=== PATIENT | male | born 1935 | race Two or more races ===

== ENCOUNTER 2022-12-02 09:51 | Outpatient (CLI) | payer MEDICARE, OTHER | END 2022-12-02 23:59 | disposition home health service (06) | LOC: WOU 09:51 | PROVIDERS: ATTEND Podiatrist Foot & Ankle Surgery | DX: L97.816 Non-pressure chronic ulcer of other part of right lower leg with bone involvement without evidence of necrosis (principal); T81.89XS Other complications of procedures, not elsewhere classified, sequela; M79.604 Pain in right leg; R60.0 Localized edema; Z79.02 Long term (current) use of antithrombotics/antiplatelets; Z79.82 Long term (current) use of aspirin | CPT/HCPCS: 11043 ==

== ENCOUNTER 2022-12-09 09:25 | Outpatient (CLI) | payer MEDICARE, OTHER | END 2022-12-09 23:59 | disposition home health service (06) | LOC: WOU 09:25 | PROVIDERS: ATTEND Podiatrist Foot & Ankle Surgery | DX: L97.216 Non-pressure chronic ulcer of right calf with bone involvement without evidence of necrosis (principal); T81.89XS Other complications of procedures, not elsewhere classified, sequela; M79.604 Pain in right leg; Z85.828 Personal history of other malignant neoplasm of skin; Z79.82 Long term (current) use of aspirin; Z79.02 Long term (current) use of antithrombotics/antiplatelets | CPT/HCPCS: 11043 ==

== ENCOUNTER 2022-12-24 11:04 | Outpatient (CLI) | payer MEDICARE, OTHER ==
[2022-12-24 12:48] LABS: BASOPHILS % (AUTO) 0.4 % (0.0-2.0); EOSINOPHILS # (AUTO) 0.1 K/uL (0.0-0.7); EOSINOPHILS % (AUTO) 1.1 % (0.0-6.0); HEMATOCRIT 40 % (39-51); HEMOGLOBIN 13.2 g/dL (13.5-17.5); LYMPHOCYTES # (AUTO) 2.4 K/uL (0.8-4.8); LYMPHOCYTES % (AUTO) 39.5 % (20.0-44.0); MEAN CORPUSCULAR HEMOGLOBIN 31 PG (26.0-33.0); MEAN CORPUSCULAR HGB CONC 33 g/dl (31.0-36.0); MEAN CORPUSCULAR VOLUME 94 fL (80-96); MONOCYTES # (AUTO) 0.5 K/uL (0.1-1.30); MONOCYTES % (AUTO) 8.5 % (2.0-12.0); NEUTROPHILS # (AUTO) 3.1 K/uL (1.8-8.9); NEUTROPHILS % (AUTO) 50.5 % (43.0-81.0); PLATELET COUNT (AUTO) 235 K/uL (150-450); RED CELL DISTRIBUTION WIDTH 14.4 % (11.5-15.0); WHITE BLOOD COUNT (AUTO) 6.2 K/uL (4.3-11.0)
[2022-12-24 12:55] LABS: CALCIUM, SERUM 8.9 mg/dL (8.5-10.1); CARBON DIOXIDE 27 mmol/L (21-32); CHLORIDE 104 mmol/L (98-107); CREATININE 1.7 mg/dL (0.6-1.3); GLUCOSE 62 mg/dL (74-106); POTASSIUM 4.6 mmol/L (3.5-5.1); SODIUM SERUM 140 mmol/L (136-145); UREA NITROGEN, BLOOD 38 mg/dL (7-18)
[2022-12-24 13:21] LABS: INR 1.08 (0.91-1.10); PROTHROMBIN TIME 11.4 SECS (9.2-11.1)
== END 2022-12-24 23:59 | disposition home or self-care (01) ==
LOC: RAD 11:04
PROVIDERS: ATTEND Surgery Vascular Surgery
DX: S91.301A Unspecified open wound, right foot, initial encounter (principal); I44.7 Left bundle-branch block, unspecified; R06.09 Other forms of dyspnea; X58.XXXA Exposure to other specified factors, initial encounter; Y93.89 Activity, other specified; Y92.89 Other specified places as the place of occurrence of the external cause; Y99.8 Other external cause status
CPT/HCPCS: 36415; 71045-TC; 80048-TC; 85025-TC; 85610-TC; A4223; J7030

== ENCOUNTER 2022-12-27 11:59 | Day surgery (SDC) | payer MEDICARE, OTHER ==
[~2022-12-27] VITALS: Ht 157.5 cm; Wt 65.8 kg
[2022-12-27 12:37] VITALS: BP 132/57; TEMP 98.1; O2SAT 97
[2022-12-27] MEDS ORDERED: ASCO100058 PO (13:28)
[2022-12-27] MEDS ORDERED: RANO500T3 PO (13:28)
[2022-12-27] MEDS ORDERED: MONT10TA22 PO (13:28)
[2022-12-27] MEDS ORDERED: ICOS1CAP PO (13:28)
[2022-12-27] MEDS ORDERED: IRON PO (13:28)
[2022-12-27] MEDS ORDERED: MAGN500C16 PO (13:28)
[2022-12-27] MEDS ORDERED: CHOL100043 PO (13:28)
[2022-12-27] MEDS ORDERED: TAMS-12 PO (13:28)
[2022-12-27] MEDS ORDERED: CARV3.12 PO (13:28)
[2022-12-27] MEDS ORDERED: SACU1TAB7 PO (13:28)
[2022-12-27] MEDS ORDERED: BUME1TAB34 PO (13:28)
[2022-12-27] MEDS ORDERED: ROSU10TA2 PO (13:28)
[2022-12-27] MEDS ORDERED: ESOM40CA52 PO (13:28)
[2022-12-27] MEDS ORDERED: FOLI0.8T3 PO (13:28)
[2022-12-27] MEDS ORDERED: RIVA2.5T PO (13:28)
[2022-12-27] MEDS ORDERED: MIRT-91 PO (13:28)
[2022-12-27] MEDS ORDERED: CEFAZOLIN 2 GM in IV D5W 100 ML IV ONE (14:30)
[2022-12-27] MEDS ORDERED: ASPIRIN 81 MG TAB.CHEW PO SCH (15:30)
[2022-12-27] MEDS ORDERED: IV NS 0.9% 1,000 ML BAG IV ONE (17:30)
== END 2022-12-27 23:59 | disposition home or self-care (01) ==
LOC: CATHLAB 11:59 → DS 11:59 → CATHLAB 23:59 → DS 23:59
PROVIDERS: ATTEND Surgery Vascular Surgery
DX: I70.291 Other atherosclerosis of native arteries of extremities, right leg (principal); I10 Essential (primary) hypertension; Z95.1 Presence of aortocoronary bypass graft; Z85.828 Personal history of other malignant neoplasm of skin; Z85.46 Personal history of malignant neoplasm of prostate; Z86.73 Personal history of transient ischemic attack (TIA), and cerebral infarction without residual deficits; Z98.890 Other specified postprocedural states; Z79.899 Other long term (current) drug therapy
CPT/HCPCS: 37224; 76937; 75625; 85347; 75710; J0690; J1644 ×2; C1769 ×3; J7060; J7030; J3490; Q9967; C1887 ×3; C1725 ×2; C1894; A4223 ×2

== ENCOUNTER 2023-04-14 09:15 | Outpatient (CLI) | payer MEDICARE, OTHER ==
[~2023-04-14 09:15] MED LIST: ASCO100058 PO; BUME1TAB34 PO; CARV3.12 PO; CHOL100043 PO; ESOM40CA52 PO; FOLI0.8T3 PO; ICOS1CAP PO; IRON PO; MAGN500C16 PO; MIRT-91 PO; MONT10TA22 PO; RANO500T3 PO; RIVA2.5T PO; ROSU10TA2 PO; SACU1TAB7 PO; TAMS-12 PO
[2023-04-14] MEDS ORDERED: COLLAGENASE 5 GM TUBE UD TP ONE (10:00)
== END 2023-04-14 23:59 | disposition home health service (06) ==
LOC: WOU 09:15
PROVIDERS: ATTEND Podiatrist Foot & Ankle Surgery
DX: I70.248 Atherosclerosis of native arteries of left leg with ulceration of other part of lower leg (principal); L97.828 Non-pressure chronic ulcer of other part of left lower leg with other specified severity; L97.216 Non-pressure chronic ulcer of right calf with bone involvement without evidence of necrosis; T81.89XS Other complications of procedures, not elsewhere classified, sequela; M86.261 Subacute osteomyelitis, right tibia and fibula; M79.604 Pain in right leg
CPT/HCPCS: 11043

== ENCOUNTER 2023-06-09 12:56 | Emergency (ER) | payer MEDICARE, OTHER ==
[~2023-06-09] VITALS: Ht 170.2 cm; Wt 65.8 kg
[2023-06-09 14:03] LABS: BASOPHILS % (AUTO) 0.2 % (0.0-2.0); EOSINOPHILS # (AUTO) 0.1 K/uL (0.0-0.7); EOSINOPHILS % (AUTO) 0.7 % (0.0-6.0); HEMATOCRIT 38 % (39-51); HEMOGLOBIN 12.4 g/dL (13.5-17.5); LYMPHOCYTES # (AUTO) 0.8 K/uL (0.8-4.8); LYMPHOCYTES % (AUTO) 11.3 % (20.0-44.0); MEAN CORPUSCULAR HEMOGLOBIN 30 PG (26.0-33.0); MEAN CORPUSCULAR HGB CONC 32 g/dl (31.0-36.0); MEAN CORPUSCULAR VOLUME 92 fL (80-96); MONOCYTES # (AUTO) 0.4 K/uL (0.1-1.30); MONOCYTES % (AUTO) 5.5 % (2.0-12.0); NEUTROPHILS # (AUTO) 6.1 K/uL (1.8-8.9); NEUTROPHILS % (AUTO) 82.3 % (43.0-81.0); PLATELET COUNT (AUTO) 186 K/uL (150-450); RED BLOOD CELL COUNT(AUTO) 4.17 MIL/uL (4.5-6.0); RED CELL DISTRIBUTION WIDTH 14.8 % (11.5-15.0); WHITE BLOOD COUNT (AUTO) 7.4 K/uL (4.3-11.0)
[2023-06-09 14:12] LABS: CALCIUM, SERUM 8.6 mg/dL (8.5-10.1); CARBON DIOXIDE 29 mmol/L (21-32); CHLORIDE 107 mmol/L (98-107); CREATININE 1.1 mg/dL (0.6-1.3); GLUCOSE 121 mg/dL (74-106); POTASSIUM 3.9 mmol/L (3.5-5.1); SODIUM SERUM 140 mmol/L (136-145); UREA NITROGEN, BLOOD 26 mg/dL (7-18)
[2023-06-09] MEDS ORDERED: ROSU20TA2 PO (16:41)
[2023-06-09] MEDS ORDERED: LACT1CAP73 PO (16:41)
[2023-06-09] MEDS ORDERED: QUET25TA PO (16:41)
[2023-06-09] MEDS ORDERED: SACU1TAB PO (16:41)
[2023-06-09] MEDS ORDERED: MEMA10TA PO (16:41)
[2023-06-09 16:49] VITALS: BP 162/78; TEMP 98.2; O2SAT 94
== END 2023-06-09 16:49 | disposition left against medical advice (07) ==
LOC: ER 13:03
DX: F41.9 Anxiety disorder, unspecified (principal); R00.0 Tachycardia, unspecified; I10 Essential (primary) hypertension; Z88.6 Allergy status to analgesic agent; Z85.46 Personal history of malignant neoplasm of prostate; Z85.828 Personal history of other malignant neoplasm of skin
CPT/HCPCS: 36415; 71045-TC; 80048-TC; 84484-TC; 85025-TC

== ENCOUNTER 2023-10-24 09:35 | Outpatient (CLI) | payer MEDICARE, OTHER ==
[~2023-10-24 09:35] MED LIST changes: +LACT1CAP73 PO; +MEMA10TA PO; +QUET25TA PO; -ROSU10TA2 PO; +ROSU20TA2 PO; +SACU1TAB PO; -SACU1TAB7 PO
== END 2023-10-24 23:59 | disposition home health service (06) ==
LOC: WOU 09:35
PROVIDERS: ATTEND Student in an Organized Health Care Education/Training Program
DX: I87.311 Chronic venous hypertension (idiopathic) with ulcer of right lower extremity (principal); L97.216 Non-pressure chronic ulcer of right calf with bone involvement without evidence of necrosis; L97.212 Non-pressure chronic ulcer of right calf with fat layer exposed; I73.9 Peripheral vascular disease, unspecified; M79.604 Pain in right leg; Z79.01 Long term (current) use of anticoagulants; Z79.82 Long term (current) use of aspirin
CPT/HCPCS: 15271; Q4186

== ENCOUNTER 2024-09-20 09:25 | Outpatient (CLI) | payer MEDICARE, OTHER ==
[2024-09-20] MEDS ORDERED: COLLAGENASE 5 GM TUBE UD TP ONE (10:03)
== END 2024-09-20 23:59 | disposition home health service (06) ==
LOC: WOU 09:25
PROVIDERS: ATTEND Student in an Organized Health Care Education/Training Program
DX: I87.311 Chronic venous hypertension (idiopathic) with ulcer of right lower extremity (principal); L97.815 Non-pressure chronic ulcer of other part of right lower leg with muscle involvement without evidence of necrosis; I70.245 Atherosclerosis of native arteries of left leg with ulceration of other part of foot; L97.522 Non-pressure chronic ulcer of other part of left foot with fat layer exposed; T81.89XS Other complications of procedures, not elsewhere classified, sequela; L97.812 Non-pressure chronic ulcer of other part of right lower leg with fat layer exposed; Z85.828 Personal history of other malignant neoplasm of skin; J44.9 Chronic obstructive pulmonary disease, unspecified; I25.10 Atherosclerotic heart disease of native coronary artery without angina pectoris; Z79.899 Other long term (current) drug therapy; Z79.01 Long term (current) use of anticoagulants
CPT/HCPCS: 11042; 11043

== ENCOUNTER 2025-01-17 09:21 | Outpatient (CLI) | payer MEDICARE, OTHER ==
[2025-01-17] MEDS ORDERED: LIDOCAINE SOLN 4% 50 ML BOTTLE ONE (09:42)
[2025-01-17] MEDS ORDERED: SILVER NITRATE APPLICATOR 1 EA BOX ONE (09:50)
[2025-01-17] MEDS ORDERED: CADEXOMER IODINE UD 5 GM TUBE ONE (09:58)
== END 2025-01-17 23:59 | disposition home health service (06) ==
LOC: WOU 09:21
PROVIDERS: ATTEND Student in an Organized Health Care Education/Training Program
DX: I87.311 Chronic venous hypertension (idiopathic) with ulcer of right lower extremity (principal); L97.812 Non-pressure chronic ulcer of other part of right lower leg with fat layer exposed; L97.816 Non-pressure chronic ulcer of other part of right lower leg with bone involvement without evidence of necrosis; I73.9 Peripheral vascular disease, unspecified; T81.89XS Other complications of procedures, not elsewhere classified, sequela; Z79.01 Long term (current) use of anticoagulants; Z79.02 Long term (current) use of antithrombotics/antiplatelets; Z79.82 Long term (current) use of aspirin
CPT/HCPCS: 11042; 11043; 11056

== ENCOUNTER 2025-01-31 09:36 | Outpatient (CLI) | payer MEDICARE, OTHER ==
[2025-01-31] MEDS ORDERED: Z GUARD REMEDY 4 OZ OINT TP ONE (09:55)
== END 2025-01-31 23:59 | disposition home health service (06) ==
LOC: WOU 09:36
PROVIDERS: ATTEND Student in an Organized Health Care Education/Training Program
DX: I87.311 Chronic venous hypertension (idiopathic) with ulcer of right lower extremity (principal); L97.812 Non-pressure chronic ulcer of other part of right lower leg with fat layer exposed; L97.816 Non-pressure chronic ulcer of other part of right lower leg with bone involvement without evidence of necrosis; T81.89XS Other complications of procedures, not elsewhere classified, sequela; I73.9 Peripheral vascular disease, unspecified; Z79.01 Long term (current) use of anticoagulants; Z79.82 Long term (current) use of aspirin
CPT/HCPCS: 11042; 11043

== ENCOUNTER 2025-02-18 09:17 | Outpatient (CLI) | payer MEDICARE, OTHER | END 2025-02-18 23:59 | disposition home health service (06) | LOC: WOU 09:17 | PROVIDERS: ATTEND Student in an Organized Health Care Education/Training Program | DX: I87.311 Chronic venous hypertension (idiopathic) with ulcer of right lower extremity (principal); L97.812 Non-pressure chronic ulcer of other part of right lower leg with fat layer exposed; L97.816 Non-pressure chronic ulcer of other part of right lower leg with bone involvement without evidence of necrosis; T81.89XS Other complications of procedures, not elsewhere classified, sequela; I73.9 Peripheral vascular disease, unspecified | CPT/HCPCS: 11042; 11043 ==